=== PATIENT | female | born 1960 | race Caucasian/White ===

== ENCOUNTER 2021-05-22 12:54 | Emergency (ER) | payer MEDICARE ==
[~2021-05-22] VITALS: Ht 154.9 cm; Wt 46.4 kg
[2021-05-22 14:13] VITALS: BP 136/80; PULSE 113; TEMP 97.8
== END 2021-05-22 14:14 | disposition home or self-care (01) ==
LOC: COL.ER 12:54
DX: R91.8 Other nonspecific abnormal finding of lung field (principal); J43.9 Emphysema, unspecified; F17.210 Nicotine dependence, cigarettes, uncomplicated